=== PATIENT | female | born 2000 | race Caucasian/White ===

== ENCOUNTER 2022-09-07 22:18 | Emergency (ER) | payer OTHER ==
[~2022-09-07] VITALS: Ht 162.6 cm; Wt 53.1 kg
[2022-09-07 22:28] VITALS: BP 109/69
--- NOTE | 2022-09-07 22:50 | NUR ---
PT HAS BEEN HAVING MOUTH PAIN SINCE LAST THURSDAY AND WENT TO PRIMARY CARE ON THURSDAY TO GET IT CHECKED AND WAS DISCHARGED AFTER WITHOUT MEDICATION. TODAY PATIENT FEEL WORSENING SYMTOM WITH PAIN AROUND OF THE BACK OF TOUGUE, INSIDE OF MOUTH, THROAT AND EAR. HX JERMAINE [facility] -CONSUELO DIEASES.
--- NOTE | 2022-09-08 | NUR ---
PT IS IN THE LOBBY WITH HER BOYFRIEND
[2022-09-08] MEDS ORDERED: IBUPROFEN 600 MG TAB PO ONE (00:55)
[2022-09-08] MEDS ORDERED: AMOXICILLIN 500 MG CAP PO ONE (00:55)
--- NOTE | 2022-09-08 01:00 | NUR ---
SWABS WERE SENT TO THE LAB.
[2022-09-08] MEDS ORDERED: AMOX500C25 PO (01:17)
[2022-09-08] MEDS ORDERED: IBUP-2213 PO (01:18)
[2022-09-08] MEDS ORDERED: MENT7.6L6 PO (01:18)
[2022-09-08 01:34] VITALS: BP 109/69
--- NOTE | 2022-09-08 02:27 | NUR ---
Patient discharged with v/s stable. Written and verbal after care instructions given and explained. Patient alert, oriented and verbalized understanding of instructions. Ambulatory with steady gait. All questions addressed prior to discharge. ID band removed. Patient advised to follow up with PMD. Rx of AMOXILIN, IBUPROFEN AND MENTOL given. Patient educated on indication of medication including possible reaction and side effects. Opportunity to ask questions provided and answered.
== END 2022-09-08 02:27 | disposition home or self-care (01) ==
LOC: MED 22:18
DX: J02.9 Acute pharyngitis, unspecified (principal); H65.191 Other acute nonsuppurative otitis media, right ear; B08.5 Enteroviral vesicular pharyngitis
CPT/HCPCS: 36415; 87081; 87252; 99284